=== PATIENT | male | born 1985 | race Caucasian/White ===

== ENCOUNTER 2020-02-20 17:44 | Inpatient (IN) | payer MEDICAID, OTHER ==
[~2020-02-20] VITALS: Ht 175.3 cm; Wt 88.3 kg
[2020-02-20 19:40] LABS: Eosinophils # (auto) 0 10 ^3/uL (0-0.8); Lymphocytes # (auto) 0.3 10 ^3/uL (0.4-5.4); Mean Corpuscular Hemoglobin 27.8 pg (28.0-32.0); Monocytes # (auto) 0.6 10 ^3/uL (0-1.3); Nucleated Red Blood Cells % 0.2 %; White Blood Cell 5.5 10^3/uL (4.4-10.8)
[2020-02-20 19:42] LABS: Basophils # (auto) 0.1 10 ^3/uL (0-0.2); Basophils % (auto) 1.2 % (0.0-2.0); Eosinophils % (auto) 0.4 % (0.0-7.0); Hematocrit 50.9 % (41.0-53.0); Hemoglobin 16.8 g/dL (13.5-17.5); Lymphocytes % (auto) 5.3 % (10.0-50.0); Mean Corpuscular Volume 84.2 fL (80.0-100.0); Neutrophils # (auto) 4.5 10 ^3/uL (1.6-8.6); Neutrophils % (auto) 82.1 % (37.0-80.0); Platelet Count (auto) 92 10^3/uL (140-450); Red Blood Cells 6.04 10^6/uL (4.5-5.90)
[2020-02-20 19:49] LABS: Red Cell Distribution Width 20.1 % (11.8-14.3)
[2020-02-20 20:16] LABS: Albumin 3.6 g/dL (3.4-5.0); Calcium 9.1 mg/dL (8.5-10.1); Potassium 3.8 mmol/L (3.5-5.1)
[2020-02-20 20:20] LABS: BUN/Creatinine Ratio 10.1; Bilirubin, Total 3.7 mg/dL (0.2-1.0); Total Protein 8.7 g/dL (6.4-8.2)
[2020-02-20 22:42] LABS: Urine Bacteria FEW /hpf (None Seen); Urine Blood 1+ /uL (Negative); Urine Hyaline Cast FEW /lpf (0 - 2); Urine Mucus FEW (None Seen); Urine Specific Gravity 1.021 (1.001-1.035); Urine WBC 3 /hpf (0 - 3)
[2020-02-20] MEDS ORDERED: TEMAZEPAM 15 MG CAP PO PRN (23:45)
[2020-02-20] MEDS ORDERED: SODIUM CHLORIDE 0.9% 1,000 ML IV ONE (23:45)
[2020-02-20] MEDS ORDERED: DOCUSATE SOD 100 MG CAP PO PRN (23:45)
[2020-02-20] MEDS ORDERED: ONDANSETRON HCL 4 MG/2 ML VIAL IV PRN (23:45)
[2020-02-20] MEDS ORDERED: DEXTROSE (50%) 50ML SYRG IV PRN (23:45)
[2020-02-20] MEDS ORDERED: ACETAMINOPHEN 325 MG TAB PO PRN (23:45)
[2020-02-20] MEDS ORDERED: LORazepam 0.5 MG TAB PO PRN (23:45)
[2020-02-20] MEDS ORDERED: LORazepam 2MG/ML-1ML VIAL ONE (23:57)
[2020-02-21] VITALS (8 sets, daily range): BP systolic 125–164; BP diastolic 72–117
[2020-02-21] MEDS ORDERED: levETIRAcetam 500 MG/5ML INJ IV ONE (00:07)
[2020-02-21 00:15] LABS: Alcohol, Urine < 3.0 mg/dL (0-10); Amphetamine Screen, Urine NEGATIVE (NEGATIVE); Barbiturate Scree,Urine NEGATIVE (NEGATIVE); Benzodiazephine Screen, Urine NEGATIVE (NEGATIVE); Cannabinoid Screen, Urine POSITIVE (NEGATIVE); Cocaine Screen, Urine NEGATIVE (NEGATIVE); Opiate Scree,Urine NEGATIVE (NEGATIVE); Phencyclidine Screen, Urine NEGATIVE (NEGATIVE)
[2020-02-21] MEDS ORDERED: LORazepam 2MG/ML-1ML VIAL IV ONE (00:30)
[2020-02-21] MEDS: ACCU-CHEK COMFORT CURVE STRIP VI SCH ×4 (01:04→11:48)
[2020-02-21] MEDS: InsuLIN REG 1unit/0.01ml Soln (100units/ml) SC SCH ×4 (01:09→11:49)
[2020-02-21] MEDS: cefTRIAXone 1GM/50ML D5W 50 ML IV SCH ×2 (01:41→23:54)
--- NOTE | 2020-02-21 01:45 | NUR ---
MS admit from ER MEENA CUELLO admitted to tele/MS after SBAR received. Patient alert and oriented to x2 person and place to MAYRA KRISHNA RN primary RN, room 996A, and unit policies regarding patient care and visiting hours. Patient came in for seizure, has left eye laceration. Patient weighed by bedscale and encouraged to call if they need something. All questions and concerns addressed, patient verbalized understanding. Note:
[2020-02-21] MEDS: HYDROcodone-ACET 5/325MG TAB PO PRN (02:18)
--- NOTE | 2020-02-21 04:18 | NUR ---
obtained order of hydralazine 25 mg po prn if sbp >150 from hospitalist
[2020-02-21] MEDS ORDERED: hydrALAZINE HCL 25 MG TAB PO PRN (04:30)
[2020-02-21 06:22] LABS: Basophils # (auto) 0 10 ^3/uL (0-0.2); Basophils % (auto) 0.4 % (0.0-2.0); Eosinophils # (auto) 0 10 ^3/uL (0-0.8); Eosinophils % (auto) 0.2 % (0.0-7.0); Hemoglobin 15.8 g/dL (13.5-17.5); Lymphocytes # (auto) 0.5 10 ^3/uL (0.4-5.4); Lymphocytes % (auto) 7.1 % (10.0-50.0); Mean Corpuscular Hgb Conc. 31.7 g/dL (32.0-36.0); Mean Corpuscular Volume 85.3 fL (80.0-100.0); Monocytes # (auto) 0.7 10 ^3/uL (0-1.3); Monocytes % (auto) 10.9 % (0.0-12.0); Neutrophils # (auto) 5.5 10 ^3/uL (1.6-8.6); Neutrophils % (auto) 81.4 % (37.0-80.0); Nucleated Red Blood Cells % 0.1 %; Platelet Count (auto) 92 10^3/uL (140-450); Red Blood Cells 5.86 10^6/uL (4.5-5.90); Red Cell Distribution Width 20.1 % (11.8-14.3); White Blood Cell 6.7 10^3/uL (4.4-10.8)
--- NOTE | 2020-02-21 06:30 | NUR ---
Rechecked BP 125/72, [place] 94, temp. 99.2, o2sat 93%.
[2020-02-21 06:40] LABS: Calcium 9.1 mg/dL (8.5-10.1); Potassium 3.4 mmol/L (3.5-5.1)
[2020-02-21 06:43] LABS: BUN/Creatinine Ratio 11.3
--- NOTE | 2020-02-21 07:05 | NUR ---
Closing shift report Patient alert and resposive, no SOB and no acute distress seen, no complains.
--- NOTE | 2020-02-21 07:30 | NUR ---
Opening Shift Note Assumed care of patient, awake and alert. No S/S of distress/SOB or pain. LAC IV noted to be out, catheter intact, no bleeding or trauma noted at site. Catheter properly disposed off. Will obtain new IV access. Seizure precautions in place. Instructed on POC and to call for assist PRN, will continue to monitor for changes Q1hr and PRN.
--- NOTE | 2020-02-21 07:40 | NUR ---
IV insertion IV access obtained, via clean sterile technique by inserting 22 gauge catheter at LFA after 1 attempt. IV secured properly. No trauma to site. Patient tolerated well.
--- NOTE | 2020-02-21 13:58 | NUR ---
IV Insertion 20G to pt's L FA inserted. One attempt made. Clean/sterile technique used. Pt self removed previous IV, catheter was removed fully intact. Site is asymptomatic.
[2020-02-21] MEDS ORDERED: LABETALOL HCL 5 MG/ML 4ML SYRINGE IV PRN (14:45)
[2020-02-21] MEDS ORDERED: LORazepam 2MG/ML-1ML VIAL IV PRN (14:45)
[2020-02-21] MEDS ORDERED: POTASSIUM EFFERVESENT TAB 25 MEQ PO ONE (15:00)
--- NOTE | 2020-02-21 17:00 | NUR ---
Send out COVID swab collected and walked to lab as per protocol.
--- NOTE | 2020-02-21 17:20 | NUR ---
Elevated BP Page out to neon molder hospitalist, d/t BP PRN requires pt to be Telemetry status. Will hold off on administering PRN until further orders obtained. Awaiting call back.
--- NOTE | 2020-02-21 17:29 | NUR ---
Received call from Dr. HENLEY. New orders received by telephone, read back and verified. Will carry out. Refer to order hx.
[2020-02-21] MEDS ORDERED: METOPROLOL SUCCINATE XL 50 MG TAB PO ONE (17:30)
--- NOTE | 2020-02-21 17:31 | NUR ---
Facesheet sent to tele monitor for tele box.
[2020-02-21] MEDS: LABETALOL HCL 5 MG/ML 4ML SYRINGE IV PRN ×2 (18:25→23:55)
--- NOTE | 2020-02-21 19:29 | NUR ---
Opening Shift Note Assumed care of patient, awake and alert. No S/S of distress/SOB or pain. Instructed on POC and to call for assist PRN, will continue to monitor for changes Q1hr and PRN.
[2020-02-21] MEDS: METOPROLOL SUCCINATE XL 50 MG TAB PO SCH (22:15)
--- NOTE | 2020-02-22 00:05 | NUR ---
Gave labetalol for 2 mins. BP is 158/95. will continue to monitor patient.
--- NOTE | 2020-02-22 00:55 | NUR ---
RECHECKED BP 149/101, [place] 86.
--- NOTE | 2020-02-22 03:27 | NUR ---
PATIENT ROUND PATIENT RESTING IN BED. WATCHING TV. DENIES ANY NEEDS RIGHT NOW.
[2020-02-22 05:00] VITALS: BP 157/106
[2020-02-22] MEDS: LABETALOL HCL 5 MG/ML 4ML SYRINGE IV PRN (05:29)
--- NOTE | 2020-02-22 06:29 | NUR ---
GAVE LABETALOL 10 MG IVP PRN FOR BP OF 157/106.
--- NOTE | 2020-02-22 06:29 | NUR ---
BP RECHECKED 150/90.
--- NOTE | 2020-02-22 07:00 | NUR ---
OPENING SHIFT NOTE RECEIVED REPORT ON THE PATIENT. PATIENT FOUND WALKING THE HALLS AND ENTERING OTHER PATIENT'S ROOMS BECAUSE HE COULD NOT REMEMBER WHAT ROOM WAS HIS. PATIENT WAS UNEASY ON HIS FEET, BUT PATIENT SAID "I'M FINE. YOU DON'T NEED TO BE CONCERNED". EDUCATED THE PATIENT ON STAYING IN BED TO AVOID FALLS SINCE HE IS HERE FOR SZ, BUT PATIENT WOULD NOT COMPLY. DISCUSSED THE PLAN OF CARE WITH THE PATIENT. BED IN LOWEST POSITION, BED ALARM ON, SIDE RAILS UP X2, AND THE CALL LIGHT IS WITHIN REACH.
[2020-02-22 07:35] LABS: Eosinophils # (auto) 0.1 10 ^3/uL (0-0.8); Hemoglobin 16.6 g/dL (13.5-17.5); Mean Corpuscular Volume 85.6 fL (80.0-100.0); White Blood Cell 6.3 10^3/uL (4.4-10.8)
[2020-02-22 07:37] LABS: Basophils # (auto) 0 10 ^3/uL (0-0.2); Basophils % (auto) 0.4 % (0.0-2.0); Eosinophils % (auto) 1.4 % (0.0-7.0); Hematocrit 52.4 % (41.0-53.0); Lymphocytes # (auto) 0.7 10 ^3/uL (0.4-5.4); Lymphocytes % (auto) 11.6 % (10.0-50.0); Mean Corpuscular Hemoglobin 27.1 pg (28.0-32.0); Mean Corpuscular Hgb Conc. 31.6 g/dL (32.0-36.0); Monocytes # (auto) 0.7 10 ^3/uL (0-1.3); Monocytes % (auto) 10.7 % (0.0-12.0); Neutrophils # (auto) 4.8 10 ^3/uL (1.6-8.6); Neutrophils % (auto) 75.9 % (37.0-80.0); Nucleated Red Blood Cells % 0.2 %; Platelet Count (auto) 96 10^3/uL (140-450); Red Blood Cells 6.12 10^6/uL (4.5-5.90)
[2020-02-22 07:49] LABS: Red Cell Distribution Width 20.2 % (11.8-14.3)
[2020-02-22 08:12] LABS: BUN/Creatinine Ratio 12.5; Calcium 9.5 mg/dL (8.5-10.1); Potassium 3.7 mmol/L (3.5-5.1)
[2020-02-22 08:51] VITALS: BP 149/98
[2020-02-22] MEDS: METOPROLOL SUCCINATE XL 50 MG TAB PO SCH ×2 (09:37→21:55)
--- NOTE | 2020-02-22 12:04 | NUR ---
ss consult Per ss consult patient needs PCP. Nadja Moses to see patient for PCP today Addendum: 02/22/20 at 1205 by Nadja RAMÍERZ Amended: Links added.
[2020-02-22 12:51] VITALS: BP 149/79
--- NOTE | 2020-02-22 16:48 | NUR ---
PATIENT REFUSING TO WEAR TELE MONITOR. EXPLAINED THAT I COULD NOT MONITOR THE PATIENT IF HE WAS NOT WEARING THE MONITOR. PATIENT STILL REFUSED.
[2020-02-22 16:49] VITALS: BP 133/80
--- NOTE | 2020-02-22 19:30 | NUR ---
Opening Shift Note Assumed care of patient, AA&OX4. No S/S of distress/SOB or pain. Safety and seizure precautions in place, bed in lowest locked position. Instructed on POC and to call for assist PRN, will continue to monitor for changes Q1hr and PRN. Signed: 02/22/20 at 2232 by MANJIT CAN SN <Co-Signature Required> Co-Signed: 02/22/20 at 2232 by CATHERINE CALDERON RN
[2020-02-22] MEDS: HYDROcodone-ACET 5/325MG TAB PO PRN (20:43)
--- NOTE | 2020-02-22 21:42 | NUR ---
Patient pulled out IV with catheter intact because he "felt it was coming out." New 22 gauge IV placed into a vein in the left AC after 1 attempt. IV secured with tegaderm. Patient tolerated well.
[2020-02-22] MEDS: cefTRIAXone 1GM/50ML D5W 50 ML IV SCH (23:09)
--- NOTE | 2020-02-22 23:28 | NUR ---
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 Made him aware that we will be unable to see any changes in his heart rate or rhythm. Patient acknowledged but is too annoyed with monitor to allow me to put it on him. Patient is upset about having to wear the monitor 24 hours a day. He stated he may allow me to put it back on later. [place] office notified.
[2020-02-22 23:39] VITALS: BP 143/97
--- NOTE | 2020-02-23 01:04 | NUR ---
Patient has left AMA. Patient came out of room and had pulled out his own IV and taken off his tele box. Patient stated: "I got to go. You people are making me anxious, giving me drugs and these chemicals." I tried to alleviate his fears with education but patient was already heading to the elevator. Patient told to go to emergency room if any symptoms occur again. Patient stated AMA form signed with second nurse as witness after patient refused to sign.
--- NOTE | 2020-02-23 01:18 | NUR ---
[employer] and security notified of patient's leaving AMA.
== END 2020-02-23 01:04 | disposition left against medical advice (07) | DRG 53 ==
LOC: ER 17:44 → EDBD 17:44 → OVERFLOW 17:45 → WEST WING 02-21 01:45 → TELE-WESTW 02-22 01:31
PROVIDERS: ADMIT Hospitalist; ATTEND Internal Medicine
DX: G40.909 Epilepsy, unspecified, not intractable, without status epilepticus (principal); E87.1 Hypo-osmolality and hyponatremia; N39.0 Urinary tract infection, site not specified; Z20.828 Contact with and (suspected) exposure to other viral communicable diseases; K72.90 Hepatic failure, unspecified without coma; I10 Essential (primary) hypertension; E66.9 Obesity, unspecified; E87.6 Hypokalemia; Z68.28 Body mass index [BMI] 28.0-28.9, adult
CPT/HCPCS: 36415; 70450; 70486; 80048; 80053; 80307; 80320; 81001; 82962; 85025; 87040; 87086; G0378; J0696; J1815; J3490; J7060

== ENCOUNTER 2020-02-29 12:32 | Inpatient (IN) | payer MEDICAID, OTHER ==
[~2020-02-29] VITALS: Ht 185.4 cm; Wt 101.1 kg
[2020-02-29] VITALS (33 sets, daily range): BP systolic 129–202; BP diastolic 68–92
[2020-02-29] MEDS ORDERED: LORazepam 2MG/ML-1ML VIAL IV ONE (13:15)
[2020-02-29] MEDS ORDERED: SODIUM CHLORIDE 0.9% 1,000 ML IV ONE ×2 (13:15)
[2020-02-29 13:26] LABS: Basophils # (auto) 0.1 10 ^3/uL (0-0.2); Basophils % (auto) 2.2 % (0.0-2.0); Eosinophils # (auto) 0.1 10 ^3/uL (0-0.8); Eosinophils % (auto) 1.2 % (0.0-7.0); Hematocrit 48.3 % (41.0-53.0); Hemoglobin 15.7 g/dL (13.5-17.5); Lymphocytes # (auto) 1.8 10 ^3/uL (0.4-5.4); Lymphocytes % (auto) 31.4 % (10.0-50.0); Mean Corpuscular Hemoglobin 28.2 pg (28.0-32.0); Mean Corpuscular Hgb Conc. 32.4 g/dL (32.0-36.0); Monocytes # (auto) 0.7 10 ^3/uL (0-1.3); Monocytes % (auto) 11.5 % (0.0-12.0); Neutrophils # (auto) 3.1 10 ^3/uL (1.6-8.6); Neutrophils % (auto) 53.7 % (37.0-80.0); Nucleated Red Blood Cells % 0.4 %; Platelet Count (auto) 234 10^3/uL (140-450); Red Blood Cells 5.56 10^6/uL (4.5-5.90); Red Cell Distribution Width 19.7 % (11.8-14.3); White Blood Cell 5.8 10^3/uL (4.4-10.8)
[2020-02-29 13:42] LABS: Urine WBC None Seen /hpf (0 - 3)
[2020-02-29] MEDS ORDERED: THIAMINE 100mg/ml INJ (200mg/2ml VIAL) IV ONE (13:45)
[2020-02-29 13:49] LABS: Urine Bacteria NONE SEEN /hpf (None Seen); Urine Blood TRACE /uL (Negative); Urine Specific Gravity 1.001 (1.001-1.035)
[2020-02-29 13:49] LABS: Albumin 3.3 g/dL (3.4-5.0); Calcium 8.6 mg/dL (8.5-10.1); Potassium 3.7 mmol/L (3.5-5.1)
[2020-02-29 14:04] LABS: Bilirubin, Total 1.7 mg/dL (0.2-1.0); Total Protein 8.6 g/dL (6.4-8.2)
[2020-02-29 14:06] LABS: Amphetamine Screen, Urine NEGATIVE (NEGATIVE); Barbiturate Scree,Urine NEGATIVE (NEGATIVE); Benzodiazephine Screen, Urine NEGATIVE (NEGATIVE); Cannabinoid Screen, Urine NEGATIVE (NEGATIVE); Cocaine Screen, Urine NEGATIVE (NEGATIVE); Phencyclidine Screen, Urine NEGATIVE (NEGATIVE)
[2020-02-29 14:15] LABS: Opiate Scree,Urine NEGATIVE (NEGATIVE)
[2020-02-29] MEDS ORDERED: diphenhdrAMINE HCL 50 MG/1 ML VL ONE (14:47)
[2020-02-29] MEDS ORDERED: methylPREDNISolone SOD SUCC 125 MG/2 ML VL ONE (14:47)
[2020-02-29] MEDS ORDERED: EPINEPHrine HCL 1 MG/1 ML AMP ONE (14:49)
--- NOTE | 2020-02-29 14:55 | NUR ---
INTUBATED PT PRESENTING WITH ALOC, INTUBATED BY DR. CASANOVA FOR AIRWAY PROTECTION. PT ORALLY INTUBATED WITH SIZE 8.0 ETT AT 22CM LIP, SECURED WITH HOLISTER. POSITIVE COLOR CHANGE ON COLORIMETRIC CO2 DETECTOR. BILATATERAL LUNG SOUNDS AUSCULTATED FOR CLEAR/DIM T/O. PLACED PT ON VENT ADQ 0206 PLUGGED INTO RED OUTLET, ON SETTINGS: AC, RR 14, VT 600, PEEP +5 , FIO2 100%. SUCTIONED FOR MODERATE THICK YELLOW SECRETIONS, SPUTUM SAMPLE OBTAINED AND SENT TO LAB. RN AT BEDSIDE, AWARE OF BLOOD PRESSURE. WILL CONT TO MONITOR.
[2020-02-29] MEDS ORDERED: MIDAZOLAM DRIP 50 mg/50mL 50 ML IV ONE (14:58)
[2020-02-29] MEDS ORDERED: EPINEPHrine HCL 1 MG/1 ML AMP IM ONE (15:00)
[2020-02-29] MEDS ORDERED: methylPREDNISolone SOD SUCC 125 MG/2 ML VL IV ONE ×2 (15:00)
[2020-02-29] MEDS ORDERED: PANTOPRAZOLE 40 MG/10 ML VIAL INJ IV ONE (15:00)
[2020-02-29] MEDS ORDERED: FLUMAZENIL 0.1 MG/ML INJ 10ML MDV IV ONE (15:00)
[2020-02-29] MEDS ORDERED: diphenhdrAMINE HCL 50 MG/1 ML VL IV ONE (15:00)
[2020-02-29] MEDS ORDERED: MIDAZOLAM DRIP 50 mg/50mL 50 ML IV SCH (15:15)
[2020-02-29] MEDS: SODIUM CHLORIDE 0.9% 1,000 ML IV SCH ×2 (16:05→21:21)
--- NOTE | 2020-02-29 16:11 | NUR ---
VENT CHANGES REPORTED ABG RESULTS TO DR. CASANOVA. VERBAL ORDER RECEIVED FOR VENT CHANGES: INCREASE RR TO 18. CHANGES MADE. NOTIFIED MITCHELL.
[2020-02-29] MEDS ORDERED: FOLIC ACID 1 MG, MULTIPLE VITAMIN 10 ML, MAGNESIUM SULF SDV 50% 8 MEQ, THIAMINE INJ 100... INJ ONE ×5 (16:15)
[2020-02-29] MEDS: MIDAZOLAM DRIP 50 mg/50mL 50 ML IV SCH ×3 (16:17→23:59)
[2020-02-29] MEDS: fentaNYL Drip 2500mCg/250mlNS 250 ML IV SCH (16:18)
--- NOTE | 2020-02-29 17:15 | NUR ---
PT RECEIVED FROM ER, 02 SATS 86-90%, ST ON MONITOR, OTHER VSS. OETT TO VENT A/C SETTINGS NOTED. LLL BREATH SOUNDS ABSENT, OTHERWISE BS CTA. PAGED RT, WAS INFORMED THAT THEY ARE IN REPORT AND THE PT IS OKAY AT 89%, INFORMED CN. CXR RESULTS FROM EARLIER TODAY RESULTED NGT ON ESOPHAGUS, RECOMMEND REPOSITIONING, ADVANCED NGT TO 55, NO RESIDUAL NOTED, NO AIR BOLUS AUSCULTATED. NGT REMOVED. I WAS LATER INFORMED BY BOGDAN RN IN ER (RN RETURNED TO BS), RN THAT PT MAY HAVE ASPIRATED DURING CENTRAL LINE PLACEMENT, AND THAT PT HAD O2 SAT OF 96% IN ER ONCE HOB ELEVATED POST CENTRAL LINE PLACEMENT. STAT CXR ORDERED. CONTINUED PRESSING 100% O2 ON VENTILATOR, BUT REMAINS 86-92% O2 SAT. WILL CONTINUE TO MONITOR CLOSELY.
--- NOTE | 2020-02-29 17:15 | NUR ---
RT Transport Note: Patient transported to ICU with RN. Patient transported on cardiac rn with alarms set and audible, ambu-bag/mask connected to O2 tank. Upon arrival, placed pt back on ventilator with previous settings. Transport completed without incident.
[2020-02-29] MEDS: ALBUTEROL SULF 2.5 MG/0.5ML(0.5%) NEB SOLN NEB PRN (17:57)
[2020-02-29] MEDS: IPRATROPIUM BROM 0.5 MG/2.5ML INH SOL NEB PRN (17:57)
--- NOTE | 2020-02-29 18:00 | NUR ---
RT AT BS, BS CXR IN PROGRESS. ST REMAINS, 02 SAT 90% ON A/C 18 TV 600 FIO2 70%, PEEP 5. WILL PAGE ATTENDING.
--- NOTE | 2020-02-29 18:11 | NUR ---
UPDATED ATTENDING MD ON PT STATUS, NEW ORDERS RECEIVED, RT UPDATED.
--- NOTE | 2020-02-29 19:58 | NUR ---
Opening Shift Note: Patient is intubated/sedated. Neuro: pupils 2 mm bilateral/sluggish; patient is able to make eye contact with voice/light pain and occasionally shake head yes and no, other times he is fatigued and sleepy; + cough/gag; sedation: Fentanyl @ 25 mcg, Versed @ 15 mg. Cardio: NSR 90 - ST 100s; SBPs 130s-140s; no edema noted; pulses all palpable. Resp: ET size 8.0/24 @ lip; Settings: AC rate 18, vT 600, FiO2 70%, PEEP 5. Previous orders for PEEP increase to 8 but patient is saturating 92-94%, RT aware, PEEP remains at 5; LLL diminished, anterior throughout otherwise clear; no ET secretions; oral secretions are thin and clear. GI: OGT inserted and placement confirmed with auscultation and aspiration of bile contents; CXR in am pending; hypoactive BS; last BM unknown. : godwin inserted 02/29/20 for strict I/O: light yefri with sediment. Skin: rashes/sores on face/chest/bilateral arms/back; small abrasion to left eye. IV: 18 g in left AC IID inserted on 02/29/20; Right IJ TLC inserted on 02/29/20 running sedation medications, NS @ 75 ml/hr, vitamin bag @ 125 ml/hr. Pulmonary and SS consultation pending. CXR/labs pending in AM; Liver US pending for elevated LFTs. Will continue to round/reposition/perform oral care.
--- NOTE | 2020-02-29 20:05 | NUR ---
MRSA swab sent to lab via [employer] system.
[2020-02-29] MEDS: metroNIDAZOLE 500MG/100ML 100 ML IV SCH (21:21)
--- NOTE | 2020-02-29 22:45 | NUR ---
Tech at bedside to perform liver US.
[2020-03-01] VITALS (102 sets, daily range): BP systolic 105–174; BP diastolic 59–93
[2020-03-01 03:50] LABS: Basophils # (auto) 0 10 ^3/uL (0-0.2); Basophils % (auto) 0.3 % (0.0-2.0); Eosinophils # (auto) 0 10 ^3/uL (0-0.8); Eosinophils % (auto) 0.2 % (0.0-7.0); Hematocrit 44.1 % (41.0-53.0); Hemoglobin 14.2 g/dL (13.5-17.5); Lymphocytes # (auto) 0.2 10 ^3/uL (0.4-5.4); Lymphocytes % (auto) 7.7 % (10.0-50.0); Mean Corpuscular Hemoglobin 28.2 pg (28.0-32.0); Mean Corpuscular Hgb Conc. 32.1 g/dL (32.0-36.0); Mean Corpuscular Volume 87.7 fL (80.0-100.0); Monocytes # (auto) 0 10 ^3/uL (0-1.3); Monocytes % (auto) 0.9 % (0.0-12.0); Neutrophils # (auto) 2.7 10 ^3/uL (1.6-8.6); Neutrophils % (auto) 90.9 % (37.0-80.0); Nucleated Red Blood Cells % 0.2 %; Platelet Count (auto) 211 10^3/uL (140-450); Red Blood Cells 5.03 10^6/uL (4.5-5.90); Red Cell Distribution Width 19.5 % (11.8-14.3)
[2020-03-01 04:10] LABS: Calcium 7.8 mg/dL (8.5-10.1); Potassium 3.8 mmol/L (3.5-5.1)
--- NOTE | 2020-03-01 04:13 | NUR ---
CHG bath not completed related to patient's agitation. All tubing, containers, and supplies changed per protocol.
[2020-03-01 04:16] LABS: Albumin 2.8 g/dL (3.4-5.0); BUN/Creatinine Ratio 8.9; Bilirubin, Total 1.4 mg/dL (0.2-1.0); Total Protein 7.8 g/dL (6.4-8.2)
[2020-03-01] MEDS: metroNIDAZOLE 500MG/100ML 100 ML IV SCH ×3 (04:44→22:30)
[2020-03-01] MEDS: MIDAZOLAM DRIP 50 mg/50mL 50 ML IV SCH ×3 (04:46→15:00)
--- NOTE | 2020-03-01 05:50 | NUR ---
Sister Kisha updated on patient status after password was provided.
--- NOTE | 2020-03-01 06:15 | NUR ---
Sister Kassy was updated on patient's status and plan of care after password was provided.
[2020-03-01] MEDS: cefTRIAXone 1GM/50ML D5W 50 ML IV SCH (08:48)
[2020-03-01] MEDS: PANTOPRAZOLE 40 MG/10 ML VIAL INJ IV SCH (09:58)
[2020-03-01] MEDS: AZITHROMYCIN 500MG/ 250ML 250 ML IV SCH (09:58)
[2020-03-01] MEDS: ENOXAPARIN SOD 40 MG/0.4 ML SYRINGE SC SCH (09:59)
--- NOTE | 2020-03-01 11:35 | NUR ---
Nutrition Consult/Assessment Notes please see attached link for complete assessment Est energy needs ABW 95 [id number] kcal (25-27 kcal/kg ABW), Est protein needs: 95-104 g (1.0-1.1g/kg ABW.) Will reassess prn Rec: EN support with osmolite@ 75 ml/hr per MD approval Addendum: 03/01/20 at [address] Amended: Links added.
[2020-03-01] MEDS: PROPOFOL 100 ML IV SCH ×3 (11:44→22:30)
[2020-03-01] MEDS: fentaNYL Drip 2500mCg/250mlNS 250 ML IV SCH (11:46)
[2020-03-01] MEDS: FOLIC ACID 1 MG, MULTIPLE VITAMIN 10 ML, MAGNESIUM SULF SDV 50% 8 MEQ, THIAMINE INJ 100... INJ SCH ×5 (14:00)
[2020-03-01] MEDS: ALBUTEROL SULF 2.5 MG/0.5ML(0.5%) NEB SOLN NEB PRN (16:24)
--- NOTE | 2020-03-01 19:20 | NUR ---
Opening Shift Note: Patient is intubated/sedated. Neuro: pupils 3 mm bilateral/brisk; patient is able to make eye contact with voice/light pain and occasionally shake head yes and no, other times he is fatigued and sleepy; + cough/gag; sedation: Fentanyl @ 25 mcg, Versed @ 5 mg; propofol @ 40. Cardio: NSR 90 - ST 100s; SBPs 130s-140s; no edema noted; pulses all palpable. Resp: ET size 8.0/24 @ lip; Settings: AC rate 18, vT 500, FiO2 60%, PEEP 8. Wheezes throughout anterior; no ET secretions; oral secretions are thin and clear. GI: OGT inserted and placement confirmed with auscultation and aspiration of brown bile contents; hypoactive BS; last BM unknown. : godwin inserted 02/29/20 for strict I/O: light yefri with sediment/slight hematuria. Skin: rashes/sores on face/chest/bilateral arms/back; small abrasion to left eye. IV: 18 g in left AC IID inserted on 02/29/20; Right IJ TLC inserted on 02/29/20 running sedation medications, NS @ 75 ml/hr, vitamin bag @ 125 ml/hr. SS consultation pending still. Labs pending in AM. Will continue to round/reposition/perform oral care.
[2020-03-01] MEDS: SODIUM CHLORIDE 0.9% 1,000 ML IV SCH (19:34)
[2020-03-02] VITALS (95 sets, daily range): BP systolic 121–178; BP diastolic 73–113
[2020-03-02] MEDS: PROPOFOL 100 ML IV SCH ×8 (00:56→22:16)
[2020-03-02] MEDS: MIDAZOLAM DRIP 50 mg/50mL 50 ML IV SCH ×4 (02:55→22:16)
--- NOTE | 2020-03-02 03:02 | NUR ---
Patient bathe/linen change Patient given complete CHG bath. Skin integrity assessed for any changes. Linens and gown changed. Patient repositioned for comfort.
[2020-03-02 03:54] LABS: Basophils # (auto) 0.1 10 ^3/uL (0-0.2); Basophils % (auto) 0.8 % (0.0-2.0); Eosinophils # (auto) 0 10 ^3/uL (0-0.8); Hematocrit 43.8 % (41.0-53.0); Hemoglobin 13.9 g/dL (13.5-17.5); Lymphocytes # (auto) 0.6 10 ^3/uL (0.4-5.4); Lymphocytes % (auto) 9.1 % (10.0-50.0); Mean Corpuscular Hemoglobin 27.9 pg (28.0-32.0); Mean Corpuscular Hgb Conc. 31.7 g/dL (32.0-36.0); Monocytes # (auto) 0.5 10 ^3/uL (0-1.3); Monocytes % (auto) 7.4 % (0.0-12.0); Neutrophils # (auto) 5.5 10 ^3/uL (1.6-8.6); Neutrophils % (auto) 82.7 % (37.0-80.0); Nucleated Red Blood Cells % 0.1 %; Platelet Count (auto) 208 10^3/uL (140-450); Red Blood Cells 4.97 10^6/uL (4.5-5.90); Red Cell Distribution Width 19.9 % (11.8-14.3); White Blood Cell 6.6 10^3/uL (4.4-10.8)
[2020-03-02 04:16] LABS: BUN/Creatinine Ratio 16.9; Calcium 8.2 mg/dL (8.5-10.1)
[2020-03-02] MEDS: metroNIDAZOLE 500MG/100ML 100 ML IV SCH ×3 (04:36→22:15)
[2020-03-02] MEDS: cefTRIAXone 1GM/50ML D5W 50 ML IV SCH (09:19)
[2020-03-02] MEDS: ENOXAPARIN SOD 40 MG/0.4 ML SYRINGE SC SCH (09:41)
[2020-03-02] MEDS: PANTOPRAZOLE 40 MG/10 ML VIAL INJ IV SCH (09:41)
[2020-03-02] MEDS: AZITHROMYCIN 500MG/ 250ML 250 ML IV SCH (10:06)
--- NOTE | 2020-03-02 10:25 | NUR ---
Resumed care at 0715, orders reviewed and ongoing assessments being done. Being treated for multiple problems and remains intubated and sedated. Upon arrival eyes open and able to move arms. Oriented to staff, place and situation. Able to nod yes or no to simple questions, ie; open mouth, can you hear me, ect... Diagnosed with seizures secondary to ETOH. No seizure activity reported and none so far. Had developed a skin rash this admission due to medication administration. Skin color normal with scaly texture on throughout body. Legs, arms, abdomen and back. No open areas. Contacted Dr. Castro at 1021 regarding increase in BP. No antihypertensive medications ordered. Reviewed medications and obtained order for Labetalol. Spoke with Juni Bullock Sr. over the phone and updated on plan of care.
[2020-03-02] MEDS ORDERED: LABETALOL HCL 5 MG/ML 4ML SYRINGE IV PRN ×2 (10:30)
[2020-03-02] MEDS: LABETALOL HCL 5 MG/ML 4ML SYRINGE IV PRN (10:52)
--- NOTE | 2020-03-02 11:00 | NUR ---
WOUND CARE NOTE: Wound care in to see patient for skin integrity monitoring due to low Hernán score of 13 and intubation status, putting patient to high risk for skin breakdown. Patient is 34 years old male with admitting diagnosis of T Breakthrough Seizures. Patient is resting in ICU bed in Rm. 101. Patient is intubated,sedated and mechanically ventilated. Patient appears to be in no pain using Yancey Kelsey Faces Pain Scale. Skin assessment done with the assistance of patient's nurse, MITCHELL Adler. No open wound noted other than scattered rashes/erythema to sacral, buttocks, abdomen and back which MITCHELL Adler reported skin irritation/reaction from Ativan. Linear scabbed abrasions also noted to patient's L lateral lower leg, area is clean and dry, left open to air. Patent is receiving BID/PRN cleaning and application of moisture Barrier cream to sacral, buttocks as preventative. Repositioned patient for comfort facing his Rt side, redistributed pressure points with pillows. Patient tolerated well. MITCHELL Adler at bedside. RECOMMENDATION: Nursing to continue with BID/PRN cleaning and application of moisture Barrier cream to sacral, buttocks as preventative, frequent turning and repositioning as condition permits, redistribute pressure points with pillows, elevate heels on pillows, continue monitoring by wound care while patient is intubated. Addendum: 03/02/20 at 1515 by Arlene Quiroz RN Amended: Links added.
--- NOTE | 2020-03-02 12:24 | NUR ---
assessment Patient is a 34 year old male who is in ICU on a vent. Per patients father Juni BARNES prior to admission patient lived home with him and family and was independent. Per Juni Barnes patient consumes too much alcohol. Juni BARNES informed me patient was drinking and had a seizure so he called 911. I informed Juni BARNES I would provide patient with resources after extubation and prior to discharge. I informed Juni Barnes I will continue to monitor and follow up as appropriate for any post discharge needs. Juni Barnes informed me patient has no insurance and gets 200.00 per week for unemployment. Brosnon Kc from [facility] informed me patients Medi-chan is pending. Juni Barnes verbalized understanding. Addendum: 03/02/20 at 1230 by Nadja RAMÍREZ Amended: Links added.
[2020-03-02] MEDS: SODIUM CHLORIDE 0.9% 1,000 ML IV SCH (12:27)
[2020-03-02] MEDS: FOLIC ACID 1 MG, MULTIPLE VITAMIN 10 ML, MAGNESIUM SULF SDV 50% 8 MEQ, THIAMINE INJ 100... INJ SCH ×5 (12:30)
--- NOTE | 2020-03-02 14:40 | NUR ---
Dr. Castro rounded at 1330. Discussed condition and plan of care. Obtained orders and verified. Will attempt CPAP trial in the am if appropriate.
--- NOTE | 2020-03-02 14:42 | NUR ---
Asiya wound care nurse was in to round earlier today, skin surveillance done.
[2020-03-02] MEDS: fentaNYL Drip 2500mCg/250mlNS 250 ML IV SCH ×2 (16:00→20:30)
--- NOTE | 2020-03-02 16:03 | NUR ---
RN for lunch coverage. In line suctioning yellow chowdary moderate inline secretions.
--- NOTE | 2020-03-02 17:31 | NUR ---
No remarkable changes, tolerating ventilator and titrated sedation as appropriate. Spoke with sister Kassy Schaeffer via phone at [phone].
--- NOTE | 2020-03-02 19:46 | NUR ---
ADMITTED 02/29/20 WHEN HIS FATHER FOUND HIM DOWN AFTER A SEIZURE. APPARENTLY REMAINED CONFUSED AFTER THE POSTICAL STATE. INTUBATED IN OUR ER. ATIVAN GIVEN IN ER FOR A SEIZURE, REACTED WITH A SKIN RASH, THEN WAS INTUBATED. BROUGHT TO ICU. ATIVAN IS ON THE ALLERGY LIST. ORALLY INTUBATED. PLAN FOR CPAP TRIAL TOMORROW. SEDATION: FENTANYL, VERSED, PROPOFOL. VITAMIN BANANA BAG UP AND RUNNING. OGT TO LIS. JIMÉNEZ IN PLACE DRAINING BOGDAN LIQUID WITH SEDIMENT. NSR WITHOUT ECTOPY.
--- NOTE | 2020-03-02 20:30 | NUR ---
ORAL CARE. SUCTIONED ETT FOR NO SECRETIONS. REPOSITIONED TO HIS RIGHT SIDE. OPENED EYES BRIEFLY. ABDOMEN IS VERY LARGE,ROUND AND SLIGHTLY FIRM. OGT TO LIS IS DRAINING A BILE GREEN LIQUID IN SMALL AMOUNTS. JIMÉNEZ IN PLACE DRAINING BOGDAN LIQUID WITH SEDIMENT. ALL EXTREMITIES ARE WARM. ALL PULSES ARE STRONG AND PALPABLE. HAS ONE PERIPHERAL IV IN THE LAC. MAIN ACCESS IS THE RIJ TLC. SCALY SKIN RASH. LEFT LATERAL LOWER LEG SCABBED ABRASIONS. BANANA BAG WITH MULTIPLE VITAMINS IS NEARING END.
--- NOTE | 2020-03-02 22:00 | NUR ---
ORAL CARE. REPOSITIONED TO BACK. NOTHING SUCTIONED FROM THE ETT. TOTAL OF 50CC OF BILE GREEN LIQUID FROM THE OGT. BANANA BAG FINISHED. REGULAR IV RETURNED TO 70CC/HR. NSR WITHOUT ECTOPY.
[2020-03-03] VITALS (101 sets, daily range): BP systolic 128–181; BP diastolic 69–101
--- NOTE | 2020-03-03 | NUR ---
PUPILS A LITTLE MORE RESPONSIVE, YET SMALL. ORAL CARE DONE. SMALL AMOUNT OF BLOOD ORALLY. NOTHING SUCTIONED FROM THE ETT. NGT COLOR HAS CHANGED TO GOLD. NO BOWEL SOUNDS. NO BM. URINE BOGDAN, CLEAR. AMOUNT OF URINE IS GOOD. NO EDEMA. LOW GRADE FEVER. NSR WITHOUT ECTOPY.
[2020-03-03] MEDS: PROPOFOL 100 ML IV SCH ×7 (01:26→18:28)
--- NOTE | 2020-03-03 03:00 | NUR ---
CHG BATH. PARTIAL LINEN CHANGE. HAS SEVERAL SMALL RED DOTS ALL OVER HIS SKIN THAT HAVE NOT INCREASED. SCDS ON.
--- NOTE | 2020-03-03 03:36 | NUR ---
AM LABS DRAWN
[2020-03-03 03:59] LABS: Basophils # (auto) 0 10 ^3/uL (0-0.2); Basophils % (auto) 0.4 % (0.0-2.0); Eosinophils # (auto) 0 10 ^3/uL (0-0.8); Eosinophils % (auto) 0.6 % (0.0-7.0); Hematocrit 43.4 % (41.0-53.0); Hemoglobin 13.8 g/dL (13.5-17.5); Lymphocytes # (auto) 1.1 10 ^3/uL (0.4-5.4); Lymphocytes % (auto) 18.2 % (10.0-50.0); Mean Corpuscular Hgb Conc. 31.8 g/dL (32.0-36.0); Monocytes # (auto) 0.3 10 ^3/uL (0-1.3); Monocytes % (auto) 5.5 % (0.0-12.0); Neutrophils # (auto) 4.6 10 ^3/uL (1.6-8.6); Neutrophils % (auto) 75.3 % (37.0-80.0); Nucleated Red Blood Cells % 0.1 %; Platelet Count (auto) 210 10^3/uL (140-450); Red Blood Cells 4.93 10^6/uL (4.5-5.90); White Blood Cell 6.1 10^3/uL (4.4-10.8)
[2020-03-03] MEDS: MIDAZOLAM DRIP 50 mg/50mL 50 ML IV SCH ×2 (04:01→19:30)
[2020-03-03 04:19] LABS: BUN/Creatinine Ratio 15.5; Calcium 8.4 mg/dL (8.5-10.1); Potassium 3.9 mmol/L (3.5-5.1)
[2020-03-03] MEDS: metroNIDAZOLE 500MG/100ML 100 ML IV SCH ×3 (06:00→22:16)
--- NOTE | 2020-03-03 06:00 | NUR ---
PROPOFOL LIFTED, THE PATIENT WAS MOVING ALL OVER THE BED. PROPOFOL REINSTATED.
[2020-03-03] MEDS: ALBUTEROL SULF 2.5 MG/0.5ML(0.5%) NEB SOLN NEB PRN (06:49)
[2020-03-03] MEDS: IPRATROPIUM BROM 0.5 MG/2.5ML INH SOL NEB PRN (06:49)
[2020-03-03] MEDS: SODIUM CHLORIDE 0.9% 1,000 ML IV SCH ×3 (08:00→22:19)
--- NOTE | 2020-03-03 09:00 | NUR ---
DECREASING SEDATIVES FOR IMPENDING CPAP TRIAL-SEE IV SPREAD SHEET. Addendum: 03/03/20 at 1935 by Keiry Ruiz RN Amended: Links added.
--- NOTE | 2020-03-03 11:10 | NUR ---
DR SOLORIO VISITS AND EXAMINES PATIENT - ORDERS RECEIVED.
[2020-03-03] MEDS: PANTOPRAZOLE 40 MG/10 ML VIAL INJ IV SCH (11:38)
[2020-03-03] MEDS: AZITHROMYCIN 500MG/ 250ML 250 ML IV SCH (11:38)
[2020-03-03] MEDS: cefTRIAXone 1GM/50ML D5W 50 ML IV SCH (11:39)
[2020-03-03] MEDS: ENOXAPARIN SOD 40 MG/0.4 ML SYRINGE SC SCH (11:39)
[2020-03-03] MEDS: FOLIC ACID 1 MG, MULTIPLE VITAMIN 10 ML, MAGNESIUM SULF SDV 50% 8 MEQ, THIAMINE INJ 100... INJ SCH ×5 (12:20)
--- NOTE | 2020-03-03 12:39 | NUR ---
PATIENT'S SISTER TOBIN PHONES - UPDATED ON PATIENT CONDITION, REQUESTS TO SPEAK WITH MD - DR SOLORIO NOTIFIED.
--- NOTE | 2020-03-03 14:25 | NUR ---
PER. MEDRANO. NO CPAP TRIAL TODAY. PT. SEDATED, WILL CONTINUE TO MONITOR RESP. STATUS AND 02 SATS.
[2020-03-03] MEDS ORDERED: LABETALOL HCL 5 MG/ML 4ML SYRINGE IV PRN (14:45)
--- NOTE | 2020-03-03 14:51 | NUR ---
Nutrition Followup Note Wt 108.9kg Pt is sedated with propofol running at 32.49 ml/hr providing 858 kcals from lipids. Pt with possible CPAP trial per Md note. Pt with no diet order. Consider Osmolite 1.2 at a goal rate of 75 ml/hr per MD approval Est energy needs ABW 95 [id number] kcal (25-27 kcal/kg ABW), Est protein needs: 95-104 g (1.0-1.1g/kg ABW.) Will reassess prn Labs: Creat 0.58L, Alb 2.8L, Ca 8.4L BM: Pt with no BM noted, gastric drainage 250 ml 03/03 per RN note Skin: BS 15 mod risk, full details in livestock caretaker note PES: Altered nutrition related lab values r.t current chronic medical condition aeb hyperbil, mod hypoalb Decreased nutrient needs r/t adiposity aeb pt`s high BMI of 31.5 kgm2 Impaired swallowing r.t current medical condition aeb pt`s intubated sedated with order if NPO Comments 1) advance diet as medically feasible 2) consider EN support with Osmolite @ 75 ml/hr per MD approval 3) refer to OPD on DC 4) continue current plan of care Expected Outcomes/Goals: pt will have improved labs F/u high 2-3 days
[2020-03-03] MEDS ORDERED: AMIODARONE HCL 200 MG TAB PO SCH (16:00)
[2020-03-03] MEDS: fentaNYL Drip 2500mCg/250mlNS 250 ML IV SCH (19:30)
--- NOTE | 2020-03-03 20:00 | NUR ---
ADMITTED 02/29/20 WHEN HIS FATHER FOUND HIM DOWN AFTER A SEIZURE. APPARENTLY REMAINED CONFUSED AFTER THE POSTICAL STATE. INTUBATED IN OUR ER. ATIVAN GIVEN IN ER FOR A SEIZURE, REACTED WITH A SKIN RASH, THEN WAS INTUBATED. BROUGHT TO ICU. ATIVAN IS ON THE ALLERGY LIST. ORALLY INTUBATED. PLAN FOR CPAP TRIAL TOMORROW. SEDATION: FENTANYL, VERSED, PROPOFOL. CPAP TRIALS ON HOLD FOR NOW. VITAMIN BANANA BAG UP AND RUNNING. NSR WITHOUT ECTOPY. OGT TO LIS DRAINING GOLD LIQUID. CENTRAL LINE DRESSING LOOSE AT CORNER. HICKS UNDER IT. AREA SHAVED AND NEW CENTRAL LINE DRESSING AND BIOPATCH PLACED. HAIR UNDER EKG LEADS LOOSE DUE TO HAIR. AREA SHAVED AND CLEANED. NEW EKG PADS. ORAL CARD. ETT SUCTIONED. ABDOMEN ROUND, LARGE AND SLIGHTLY FIRM. NO BM YET. JIMÉNEZ IN PLACE DRAINING LIGHT BOGDAN LIQUID WITH RARE SEDIMENT. NO KRISTY SKIN ISSUES. SCDS ON. ALL PULSES STRONG AND PALPABLE. NO PERIPHERAL EDEMA. BILATERAL MITTENS ON. WAKES UP OCCASIONALLY MOVING ALL EXTREMITIES. SEDATION IS HOLDING HIM IN A QUIET STATE. NO SEIZURE ACTIVITY SINCE ER. ETT TO VENTILATOR. O2 SAT 94%. NO VENTILATOR CHANGES. NEW ORDER FOR EEG. NEW CONSULT TODAY: DR GAUTAM. HAVE NOT SPOKE TO FAMILY SO FAR. PATIENTS FACE IS RED. SCALY SKIN UNDER HICKS. SMALL DOTS SCATTERED IN A NON UNIFORM FASHION ACROSS TORSO, ARMS, LEGS. SBP STABLE NOT REQUIRING PRN LABETOLOL.
--- NOTE | 2020-03-03 22:00 | NUR ---
REPOSITIONED TO BACK. ORAL CARE DONE. SUCTIONED THE ETT. NORMAL TEMPERATURE. MOVES ALL EXTREMITIES WHEN STIMULATED. CONTINUES ON SEDATION: VERSED, FENTANYL AND DIPRIVAN. NO INCREASE IN RASH.
--- NOTE | 2020-03-03 23:00 | NUR ---
CENTRAL LINE DRESSING CHANGE.
[2020-03-04] VITALS (104 sets, daily range): BP systolic 98–171; BP diastolic 50–158
--- NOTE | 2020-03-04 | NUR ---
SANDI AT 4 AND SLUGGISH. ORAL CARE. SUCTIONED AND LAVAGED ETT FOR A SMALL AMOUNT OF WHITE SECRETIONS. LUNGS CLEAR. PIP AROUND 32-34. ABDOMEN REMAINS LARGE, ROUND AND SLIGHTLY FIRM. NO BM. JIMÉNEZ DRAINING A DARK BOGDAN LIQUID WITH SLUDGE.
[2020-03-04] MEDS: LABETALOL HCL 5 MG/ML 4ML SYRINGE IV PRN (02:59)
[2020-03-04] MEDS: MIDAZOLAM DRIP 50 mg/50mL 50 ML IV SCH ×3 (03:00→22:00)
--- NOTE | 2020-03-04 03:00 | NUR ---
LABETOLOL FOR SBP 171
--- NOTE | 2020-03-04 03:19 | NUR ---
AM LABS DRAWN
[2020-03-04] MEDS: PROPOFOL 100 ML IV SCH ×8 (03:39→22:48)
[2020-03-04 04:02] LABS: Basophils # (auto) 0 10 ^3/uL (0-0.2); Basophils % (auto) 0.5 % (0.0-2.0); Eosinophils # (auto) 0.1 10 ^3/uL (0-0.8); Eosinophils % (auto) 1.8 % (0.0-7.0); Hematocrit 43.6 % (41.0-53.0); Hemoglobin 13.9 g/dL (13.5-17.5); Lymphocytes # (auto) 0.8 10 ^3/uL (0.4-5.4); Lymphocytes % (auto) 13.2 % (10.0-50.0); Mean Corpuscular Hemoglobin 27.9 pg (28.0-32.0); Mean Corpuscular Hgb Conc. 31.9 g/dL (32.0-36.0); Mean Corpuscular Volume 87.5 fL (80.0-100.0); Monocytes # (auto) 0.2 10 ^3/uL (0-1.3); Monocytes % (auto) 3.5 % (0.0-12.0); Nucleated Red Blood Cells % 0.1 %; Platelet Count (auto) 195 10^3/uL (140-450); Red Blood Cells 4.98 10^6/uL (4.5-5.90); White Blood Cell 6.2 10^3/uL (4.4-10.8)
[2020-03-04 04:15] LABS: Red Cell Distribution Width 20.2 % (11.8-14.3)
[2020-03-04 04:24] LABS: BUN/Creatinine Ratio 13.5; Calcium 8.5 mg/dL (8.5-10.1); Potassium 3.6 mmol/L (3.5-5.1)
--- NOTE | 2020-03-04 05:00 | NUR ---
CHG BATH AND PARTIAL LINEN CHANGE
[2020-03-04] MEDS: metroNIDAZOLE 500MG/100ML 100 ML IV SCH ×3 (06:14→22:13)
--- NOTE | 2020-03-04 07:20 | NUR ---
Assumed care of pt., report received per MITCHELL Hanna. No distress noted, pt. attached to ventilator and monitor and reading sinus rhythm /s ectopy and tolerating vent. Will cont.to monitor for any changes, assessment ongoing.
[2020-03-04] MEDS: ENOXAPARIN SOD 40 MG/0.4 ML SYRINGE SC SCH (10:31)
[2020-03-04] MEDS: cefTRIAXone 1GM/50ML D5W 50 ML IV SCH (10:31)
[2020-03-04] MEDS: AZITHROMYCIN 500MG/ 250ML 250 ML IV SCH (10:31)
[2020-03-04] MEDS: PANTOPRAZOLE 40 MG/10 ML VIAL INJ IV SCH (10:31)
--- NOTE | 2020-03-04 12:15 | NUR ---
pt. noted to have become anxious/agitated and unable to reason with patient to follow simple commands upon sedation vacation initiation, pt. tolerated CPAP for 5 min and required returning to sedation due to the reasons above and noted elevated B/P and increasing tachycardia, will cont.to monitor for any further changes, assessment ongoing.
[2020-03-04] MEDS: FOLIC ACID 1 MG, MULTIPLE VITAMIN 10 ML, MAGNESIUM SULF SDV 50% 8 MEQ, THIAMINE INJ 100... INJ SCH ×5 (12:29)
[2020-03-04] MEDS: SODIUM CHLORIDE 0.9% 1,000 ML IV SCH ×2 (13:00→22:00)
--- NOTE | 2020-03-04 16:08 | NUR ---
EEG-ELECTROENCEPHALOGRAM COMPLETED @ 10:30.
--- NOTE | 2020-03-04 19:25 | NUR ---
No distress noted, pt. report given to MITCHELL Hanna. Care of pt. assumed per NOC RN, day shift RN relinquished care and signed off.
[2020-03-04] MEDS: fentaNYL Drip 2500mCg/250mlNS 250 ML IV SCH (19:50)
--- NOTE | 2020-03-04 20:00 | NUR ---
SCALY NOSE AND SKIN UNDER HICKS. TRIED REMOVING SOME OF IT. RASH DOTS LOOK LIKE PEMPHIGUS. THEY ARE STILL ALL OVER THE TORSO, BACK, ARMS AND LEGS. THEY HAVE NOT WORSENED OR GOTTEN BETTER. LUNGS CLEAR. RESP TX BEING GIVEN. ORAL CARE: LARGE AMOUNT OF CLOUDY WHITE. OGT TO LIS IS DRAINING GOLD LIQUID BUT LESS SO THAN YESTERDAY. RARE BOWEL SOUND. NO BM YET. JIMÉNEZ: DARK BOGDAN LIQUID IN GOOD AMOUNTS. NO PERIPHERAL EDEMA. ABDOMEN IS ROUND, LARGE AND LIGHTLY FIRM. ALL PULSES PALPABLE. BILATERAL MITTENS ON.
--- NOTE | 2020-03-04 20:28 | NUR ---
ADMITTED 02/29/20 WHEN HIS FATHER FOUND HIM DOWN AFTER A SEIZURE. APPARENTLY REMAINED CONFUSED AFTER THE POSTICAL STATE. INTUBATED IN OUR ER. ATIVAN GIVEN IN ER FOR A SEIZURE, REACTED WITH A SKIN RASH, THEN WAS INTUBATED. BROUGHT TO ICU. ATIVAN IS ON THE ALLERGY LIST. ORALLY INTUBATED. PLAN FOR CPAP TRIAL TOMORROW. SEDATION: FENTANYL, VERSED, PROPOFOL. VITAMIN BANANA BAG UP AND RUNNING. NSR WITHOUT ECTOPY. OGT TO LIS DRAINING GOLD LIQUID. ORAL CARe. ETT SUCTIONED. ABDOMEN ROUND, LARGE AND SLIGHTLY FIRM. NO BM YET. JIMÉNEZ IN PLACE DRAINING LIGHT BOGDAN LIQUID WITH RARE SEDIMENT. NO KRISTY SKIN ISSUES. SCDS ON. ALL PULSES STRONG AND PALPABLE. NO PERIPHERAL EDEMA. BILATERAL MITTENS ON. SEDATION IS HOLDING HIM IN A QUIET STATE. NO SEIZURE ACTIVITY SINCE ER. ETT TO VENTILATOR. O2 SAT 91%. RT PREVIOUSLY PLACED HIM ON 35%. RT IN ROOM NOW. NEW ORDER FOR EEG. NEW CONSULT YESTERDAY: DR GAUTAM. EEG RESULTS REPORTED TO DR GAUTAM. HAVE NOT SPOKE TO FAMILY SO FAR. PATIENTS FACE IS RED. SCALY SKIN UNDER HICKS. SMALL DOTS SCATTERED IN A NON UNIFORM FASHION ACROSS TORSO, ARMS, LEGS. SBP STABLE NOT REQUIRING PRN LABETOLOL.
[2020-03-04] MEDS: ALBUTEROL SULF 2.5 MG/0.5ML(0.5%) NEB SOLN NEB PRN (20:30)
[2020-03-04] MEDS: IPRATROPIUM BROM 0.5 MG/2.5ML INH SOL NEB PRN (20:30)
--- NOTE | 2020-03-04 21:00 | NUR ---
FIO2 INCREASED TO 40%. O2 SAT ONLY 92%. AC 18, RR 18, PIP 26.4. YESTERDAY IT WAS 31
--- NOTE | 2020-03-04 22:00 | NUR ---
ORAL CARE. REPOSITIONED TO HIS LEFT SIDE. NSR WITHOUT ECTOPY. NO VENTILATOR CHANGES. SUCTIONED THE ETT FOR WATERY SECRETIONS. JIMÉNEZ: BOGDAN LIQUID IN GOOD AMOUNTS. IV SITE SHOWS NO REDNESS OR SWELLING.
[2020-03-05] VITALS (84 sets, daily range): BP systolic 110–188; BP diastolic 60–125
--- NOTE | 2020-03-05 | NUR ---
NSR WITHOUT ECTOPY. SANDI. ORAL CARE DONE. WATERY SECRETIONS FROM THE ETT. OGT SECRETIONS GOLD. NO BM YET. URINE IS DARK BOGDAN IN GOOD AMOUNTS.
[2020-03-05] MEDS: PROPOFOL 100 ML IV SCH ×2 (01:48→04:38)
--- NOTE | 2020-03-05 02:00 | NUR ---
VSS. NSR WITHOUT ECTOPY. REPOSITIONED TO RIGHT SIDE. ORAL CARE. JIMÉNEZ: DARK BOGDAN LIQUID URINE OUTPUT.
--- NOTE | 2020-03-05 04:30 | NUR ---
REPOSITIONED TO BACK. VSS. NSR WITHOUT ECTOPY. LUNGS CLEAR.
[2020-03-05] MEDS: MIDAZOLAM DRIP 50 mg/50mL 50 ML IV SCH (04:39)
--- NOTE | 2020-03-05 05:04 | NUR ---
[facility] BATH
[2020-03-05 05:20] LABS: Basophils # (auto) 0 10 ^3/uL (0-0.2); Basophils % (auto) 0.5 % (0.0-2.0); Eosinophils # (auto) 0.2 10 ^3/uL (0-0.8); Eosinophils % (auto) 2.2 % (0.0-7.0); Hematocrit 42.7 % (41.0-53.0); Hemoglobin 13.5 g/dL (13.5-17.5); Lymphocytes # (auto) 0.6 10 ^3/uL (0.4-5.4); Lymphocytes % (auto) 8.2 % (10.0-50.0); Mean Corpuscular Hemoglobin 27.7 pg (28.0-32.0); Mean Corpuscular Hgb Conc. 31.6 g/dL (32.0-36.0); Mean Corpuscular Volume 87.6 fL (80.0-100.0); Monocytes # (auto) 0.3 10 ^3/uL (0-1.3); Monocytes % (auto) 4.2 % (0.0-12.0); Neutrophils # (auto) 6.2 10 ^3/uL (1.6-8.6); Neutrophils % (auto) 84.9 % (37.0-80.0); Platelet Count (auto) 171 10^3/uL (140-450); Red Blood Cells 4.87 10^6/uL (4.5-5.90); White Blood Cell 7.3 10^3/uL (4.4-10.8)
[2020-03-05] MEDS: metroNIDAZOLE 500MG/100ML 100 ML IV SCH ×3 (05:33→22:17)
[2020-03-05 05:42] LABS: Calcium 8.2 mg/dL (8.5-10.1); Potassium 3.6 mmol/L (3.5-5.1)
[2020-03-05] MEDS: cefTRIAXone 1GM/50ML D5W 50 ML IV SCH (09:19)
[2020-03-05] MEDS: PANTOPRAZOLE 40 MG/10 ML VIAL INJ IV SCH (09:57)
[2020-03-05] MEDS: AZITHROMYCIN 500MG/ 250ML 250 ML IV SCH (09:58)
[2020-03-05] MEDS: ENOXAPARIN SOD 40 MG/0.4 ML SYRINGE SC SCH (09:58)
--- NOTE | 2020-03-05 11:03 | NUR ---
Nutrition Followup Note Wt 108.8 kg Pt is on a sedation vacation d/t scheduled extubation per RN. Pt with no diet order, pending successful extubation. Est energy needs ABW 95 [id number] kcal (25-27 kcal/kg ABW), Est protein needs: 95-104 g (1.0-1.1g/kg ABW.) Will reassess prn Labs: Alb 2.8 L, Ca 8.2 L BM: Pt with incontinence per RN note Skin: BS 16 mod risk, full details in campground caretaker note PES: Altered nutrition related lab values r.t current chronic medical condition aeb hyperbil, mod hypoalb Decreased nutrient needs r/t adiposity aeb pt`s high BMI of 31.5 kgm2 Impaired swallowing r.t current medical condition aeb pt`s intubated sedated with order if NPO Comments 1) advance diet as medically feasible 2) consider EN support with Osmolite @ 75 ml/hr per MD approval 3) refer to OPD on DC 4) continue current plan of care
--- NOTE | 2020-03-05 11:20 | NUR ---
ABG RESULTS REPORTED TO DR. SOLORIO. T.O. RECEIVED TO EXTUBATE PT.
--- NOTE | 2020-03-05 11:30 | NUR ---
PT. EXTUBATED AND PLACED ON 40% COOL AEROSOL, SP02 88-90%, RR 28, MW=346. BS. ARE CLEAR BILATERALLY, PT. COUGHING AND CLEARING SECRETIONS. PT. COUGHING A LOT, SEEMS TO HAVE SOME IRRITATION IN HIS THROAT. NO RESP. DISTRESS NOTED, VITALS STABLE, WILL CONTINUE TO MONITOR RESP. STATUS AND 02 SATS.
--- NOTE | 2020-03-05 11:35 | NUR ---
SPO2 NOTE TO BE AT 87%, PT. GIVEN MN. TX. WITH NO ADVERSE EFFECTS, COUGH SETTLING DOWN, INCREASED COOL AERSOL TO 50%.
--- NOTE | 2020-03-05 12:00 | NUR ---
PT. PLACED ON BIPAP 05/09, BR 12, FI02 50%. ALARMS ARE SET AND FUNCTIONAL, BVM AT THE BEDSIDE CONNECTED TO 02 SOURCE. PT. IS AWAKE AND ALERT FOLLOWING COMMANDS. RR=23,ED=898, SP02 92%, FH=697,LEAK=32. CONTINUE TO MONITOR RESP. STATUS AND 02 SATS. Addendum: 03/05/20 at 1239 by Maddie Murillo RT Amended: Links added.
--- NOTE | 2020-03-05 12:05 | NUR ---
pt. noted 100.5 MD Dmitri notified and new orders were received, will implement and will cont.to monitor for any change, call harrison in reach, assessment ongoing.
[2020-03-05] MEDS: FOLIC ACID 1 MG, MULTIPLE VITAMIN 10 ML, MAGNESIUM SULF SDV 50% 8 MEQ, THIAMINE INJ 100... INJ SCH ×5 (13:38)
--- NOTE | 2020-03-05 14:10 | NUR ---
pt. pulled off bipap, due to vomiting gastic contents. Placed pt. back on cool aerosol at 50%. No resp. distress noted at this time, sp02 91%,rr 22,hr 108. Continue to monitor resp. status and 02 sats.
[2020-03-05] MEDS: SODIUM CHLORIDE 0.9% 1,000 ML IV SCH ×2 (15:46→23:00)
[2020-03-05 16:03] LABS: Urine Bacteria FEW /hpf (None Seen); Urine Blood 2+ /uL (Negative); Urine Specific Gravity 1.018 (1.001-1.035); Urine WBC 3 /hpf (0 - 3)
[2020-03-05] MEDS: ONDANSETRON HCL 4 MG/2 ML VIAL IV PRN ×2 (16:50→20:33)
--- NOTE | 2020-03-05 19:15 | NUR ---
No distress noted, pt. report given to MITCHELL Hanna. Patient care assumed per NOC shift RN, day shift RN relinquished care and signed off.
--- NOTE | 2020-03-05 19:29 | NUR ---
ADMITTED 02/29/20 WHEN HIS FATHER FOUND HIM DOWN AFTER A SEIZURE. APPARENTLY REMAINED CONFUSED AFTER THE POSTICTAL STATE. INTUBATED IN OUR ER. ATIVAN GIVEN IN ER FOR A SEIZURE, REACTED WITH A SKIN RASH, THEN WAS INTUBATED. BROUGHT TO ICU. ATIVAN IS ON THE ALLERGY LIST. EXTUBATED AT 1130. ON COOL MIST AND BIPAP. NOW ON OXYMIZER 8L. O2 SAT 95%. AWAKE. LYING IN BED. COOPERATING. ALERT. FOLLOWS COMMANDS. PEARL. JONES. RIJ TLC IS MISSING A STITCH. NEW DRESSING IS SECURE, CLEAN AND DRY. NPO. VOMITED TWICE ON DAYSHIFT. ZOFRAN GIVEN ONCE. NO EMESIS SINCE. JIMÉNEZ IN PLACE DRAINING BOGDAN LIQUID IN GOOD AMOUNTS. PATEL CULTURE ORDER. WAITING FOR INDUCEMENT OF SPUTUM BY RT. SCDS ON. CONTINUES TO HAVE RASH OVER ENTIRE BODY. THE RASH PRESENTS PEMPHIGUS, SOME WITH YELLOW HEADS, OTHERS ARE JUST RED. SBP NORMAL. LABETOLOL PRN .
--- NOTE | 2020-03-05 20:10 | NUR ---
SAT AND TALKED TO HIM FOR AWHILE. HE INQUIRED TO WHY HE GOT HERE. I EXPLAINED WHAT HAPPENED AT THE HOUSE THAT LED HIM HERE. THEN I EXPLAINED WHAT HAS HAPPENED SINCE HE CAME HERE. HE STATED THAT HE HAS NEVER BEEN TO REHAB FOR HIS DRINKING, YET HE FEELS HE CAN QUIT. HE STATED: " LOOK WHAT HAPPENED TO ME, I HAVE TO QUIT". HE IS UNAWARE RIGHT NOW IF HIS SEIZURES STARTED BEFORE HIS DRINKING STARTED. HE HAS A WHISPERY VOICE. ORIENTED. CALM. COOPERATIVE. MOVES HIMSELF IN BED. EXPLAINED WHERE HE IS, THE PLAN FOR TONIGHT AND TO BE CAREFUL WITH HIS LINES.
--- NOTE | 2020-03-05 22:00 | NUR ---
PATIENT IS REQUESTING A FAN AND A BLANKET. O2 SAT IS 93. REPOSITIONS SELF. FACE IS RED. TEMP 99.0
[2020-03-06] VITALS (52 sets, daily range): BP systolic 112–208; BP diastolic 56–124
--- NOTE | 2020-03-06 | NUR ---
BP 162/102. LABETOLOL GIVEN DENIES NAUSEA OR PAIN. VERY COARSE COUGH. SO FAR NONPRODUCTIVE. LUNGS CLEAR. NO FEVER. WANTS THE FAN ON. TOOK HIS GOWN PART WAY OFF. NO CHANGE IN RASH. IV SITE SHOWS NO REDNESS OR SWELLING. HAS ROLLED OVER AND IS TRYING TO SLEEP. HAVE GIVEN HIM 15 ML OF WATER TWICE. NO COUGHING. SORE THROAT.
[2020-03-06] MEDS: LABETALOL HCL 5 MG/ML 4ML SYRINGE IV PRN ×5 (00:25→23:14)
--- NOTE | 2020-03-06 02:00 | NUR ---
SLEEPS ON AND OFF. VSS. NSR WITHOUT ECTOPY. IV PATENT.
--- NOTE | 2020-03-06 04:00 | NUR ---
CHG BATH GIVEN. LARGE AMOUNT OF FLAKY SKIN WASHED OFF FACE AND HEAD. HE PARTICIPATED IN THE BATH. HE OCCASIONALLY PICKS UP A WIRE AND ASKS, "DO I NEED THIS?" STATES THAT HE FEELS GOOD AND WANTS TO GO HOME. SBP HAS BEEN HIGH FOR 4 HOURS. LABETOLOL IS NOT HOLDING HIM. DUE AGAIN. SCDS REMAIN ON. JIMÉNEZ DRAINING A LARGE AMOUNT CLEAR BOGDAN LIQUID TO DOWN DRAIN BAG. NSR WITHOUT ECTOPY.
[2020-03-06 04:57] LABS: Basophils # (auto) 0 10 ^3/uL (0-0.2); Basophils % (auto) 0.2 % (0.0-2.0); Eosinophils # (auto) 0.1 10 ^3/uL (0-0.8); Eosinophils % (auto) 1.5 % (0.0-7.0); Hematocrit 44.2 % (41.0-53.0); Lymphocytes # (auto) 0.4 10 ^3/uL (0.4-5.4); Lymphocytes % (auto) 5.8 % (10.0-50.0); Mean Corpuscular Hemoglobin 27.7 pg (28.0-32.0); Mean Corpuscular Hgb Conc. 31.7 g/dL (32.0-36.0); Mean Corpuscular Volume 87.3 fL (80.0-100.0); Monocytes # (auto) 0.4 10 ^3/uL (0-1.3); Monocytes % (auto) 4.8 % (0.0-12.0); Neutrophils # (auto) 6.6 10 ^3/uL (1.6-8.6); Neutrophils % (auto) 87.7 % (37.0-80.0); Nucleated Red Blood Cells % 0.1 %; Platelet Count (auto) 190 10^3/uL (140-450); Red Blood Cells 5.06 10^6/uL (4.5-5.90); Red Cell Distribution Width 19.4 % (11.8-14.3); White Blood Cell 7.5 10^3/uL (4.4-10.8)
[2020-03-06 05:13] LABS: Calcium 9.2 mg/dL (8.5-10.1); Potassium 3.6 mmol/L (3.5-5.1)
[2020-03-06 05:15] LABS: BUN/Creatinine Ratio 10.4
--- NOTE | 2020-03-06 05:16 | NUR ---
RT DECREASED THE OXYMIZER TO 6L. O2 SAT 96%.
[2020-03-06] MEDS: metroNIDAZOLE 500MG/100ML 100 ML IV SCH ×3 (05:39→22:42)
--- NOTE | 2020-03-06 06:00 | NUR ---
DECREASED THE OXYMIZER TO 4L.
--- NOTE | 2020-03-06 06:00 | NUR ---
VOICE IS STRONGER. DECREASING THE OXYMIZER RATE. NSR WITHOUT ECTOPY. IV PATENT.
--- NOTE | 2020-03-06 06:33 | NUR ---
CHANGED TO NASAL CANNULA 4LNP. O2 SATURATION 93%.
--- NOTE | 2020-03-06 07:25 | NUR ---
REPORT RECEIVED FROM ASH HANDLER RN
--- NOTE | 2020-03-06 08:38 | NUR ---
FAMILY UPDATED ON PATIENT STATUS. ALL QUESTIONS AND CONCERNS ADDRESSED AT THIS TIME
[2020-03-06] MEDS: cefTRIAXone 1GM/50ML D5W 50 ML IV SCH (08:47)
--- NOTE | 2020-03-06 09:01 | NUR ---
JIMÉNEZ CATHETER REMOVED PER PATIENT REQUEST
--- NOTE | 2020-03-06 09:03 | NUR ---
DR. SOLORIO PAGED REGARDING ELEVATED BLOOD PRESSURE
[2020-03-06] MEDS: AZITHROMYCIN 500MG/ 250ML 250 ML IV SCH (09:54)
[2020-03-06] MEDS: PANTOPRAZOLE 40 MG/10 ML VIAL INJ IV SCH (09:54)
[2020-03-06] MEDS: ENOXAPARIN SOD 40 MG/0.4 ML SYRINGE SC SCH (09:54)
--- NOTE | 2020-03-06 10:11 | NUR ---
DR. SOLORIO AT BEDSIDE
[2020-03-06] MEDS ORDERED: amLODIPine BESYLATE 5 MG TAB ONE (10:13)
--- NOTE | 2020-03-06 10:17 | NUR ---
PATIENT URINATED 575 CC STRAW COLORED URINE INTO URINAL
[2020-03-06] MEDS ORDERED: MULTIPLE VITAMIN TAB PO ONE (10:30)
[2020-03-06] MEDS ORDERED: FOLIC ACID 1 MG TAB PO ONE (10:30)
[2020-03-06] MEDS ORDERED: THIAMINE HCL 100 MG TAB PO ONE (10:30)
[2020-03-06] MEDS: amLODIPine BESYLATE 5 MG TAB PO SCH (11:15)
--- NOTE | 2020-03-06 12:42 | NUR ---
PATIENT PROVIDED WITH LUNCH TRAY
--- NOTE | 2020-03-06 17:16 | NUR ---
PATIENT RESTING WITH NO S/S OF DISTRESS
--- NOTE | 2020-03-06 18:18 | NUR ---
PATIENT PROVIDED WITH DINNER TRAY
[2020-03-06] MEDS: SODIUM CHLORIDE 0.9% 1,000 ML IV SCH ×2 (18:23→22:42)
--- NOTE | 2020-03-06 18:40 | NUR ---
Respiratory note: ASSESS PT FOR PRN MED NEB AT THIS TIME, NO DISTRESS NOTED, NO TX INDICATED. PULSE OX 93% ON 4LNC, HR 97, RR 18, BILATERAL BS DIMINISHED.
--- NOTE | 2020-03-06 19:40 | NUR ---
DR GAUTAM AT BEDSIDE MD EDUCATED PATIENT ON POC, HIS STATUS AND ETOH USE.
--- NOTE | 2020-03-06 19:45 | NUR ---
PATIENT REPORTS ITCHING RECEIVED NEW ORDERS FROM DR. GAUTAM
--- NOTE | 2020-03-06 20:16 | NUR ---
PATIENT IS TAKING BED BATH ON HIS OWN WET TOWEL AND CHG WIPES PROVIDED, EDUCATED PATIENT ON PROPER USE OF CHG WIPES. STAND BY ASSISTANCE, CALL LIGHT WITHIN REACH.
[2020-03-06] MEDS: diphenhdrAMINE HCL 25 MG CAP PO PRN (20:22)
--- NOTE | 2020-03-06 21:50 | NUR ---
REPORT GIVEN TO JEREMY MEDRANO PATIENT WILL BE TRANSFERRED FROM ICU 101 TO [facility] 294B
--- NOTE | 2020-03-06 22:30 | NUR ---
pt got to floor from ICU. no sign of distress at this time, report given by Darrian MEDRANO
--- NOTE | 2020-03-06 22:40 | NUR ---
PATIENT TRANSFERRED TO TELE 294B PATIENT TRANSFERRED TO TELE 294B FROM ICU 101 BY WHEELCHAIR ON PORTABLE OXYGEN AND TELE BOX. TRANSFERRED WITH ACLS BOX ACCORDING TO PROTOCOL. ALL BELONGINGS WENT WITH PATIENT INCLUDING HIS BLACK BAG, CELLPHONE AND CELLPHONE BREWERY PUMPER. JEREMY MEDRANO AT THE BEDSIDE ORIENTING PATIENT TO HIS NEW ROOM.
[2020-03-07] MEDS: diphenhdrAMINE HCL 25 MG CAP PO PRN (04:04)
[2020-03-07] MEDS: LABETALOL HCL 5 MG/ML 4ML SYRINGE IV PRN (04:50)
[2020-03-07 05:00] VITALS: BP 174/105
[2020-03-07] MEDS: metroNIDAZOLE 500MG/100ML 100 ML IV SCH ×2 (05:38→13:56)
--- NOTE | 2020-03-07 06:35 | NUR ---
PRN [place] TX NOT INDICATED AT THIS TIME. PT IS AWAKE, ALERT AND ORIENTED. PT ON 3L/MIN VIA NC. 94% O2SATS, HR 92 BPM, RR20 BPM, BS ARE BIBASILARLY DIMINISHED TO AUSCULTATION. SKIN IS WARM AND DRY TO THE TOUCH. RESPIRATION IS EVEN AND NON LABORED. PT DENIES SOB OR ANY OTHER RESPIRATORY DISTRESS. PT INSTRUCTED TO CALL IF [place] TX IS INDICATED. PT VERBALIZED UNDERSTANDING.
--- NOTE | 2020-03-07 07:25 | NUR ---
pt wants his wallet now that was pl;aced in safe. spoke to powerhouse mechanic supervisor Kervin and will get back to the pt. day RN made aware
--- NOTE | 2020-03-07 07:30 | NUR ---
endorsed care to day RN. no sign of pain/distress at this time
[2020-03-07 09:00] VITALS: BP 152/92
[2020-03-07] MEDS: PANTOPRAZOLE 40 MG/10 ML VIAL INJ IV SCH (09:00)
[2020-03-07] MEDS: cefTRIAXone 1GM/50ML D5W 50 ML IV SCH (09:00)
[2020-03-07] MEDS: amLODIPine BESYLATE 5 MG TAB PO SCH (09:02)
[2020-03-07] MEDS: ENOXAPARIN SOD 40 MG/0.4 ML SYRINGE SC SCH (09:02)
--- NOTE | 2020-03-07 09:12 | NUR ---
per dr ulrich patient can DC home, patient condition discussed with patient extensively according to Dr Ulrich
--- NOTE | 2020-03-07 09:14 | NUR ---
no wallet still from house sup, called day house sup she will bring patient belongings.
[2020-03-07] MEDS ORDERED: ACETAMINOPHEN 325 MG TAB PO PRN (09:15)
[2020-03-07] MEDS: AZITHROMYCIN 500MG/ 250ML 250 ML IV SCH (09:25)
--- NOTE | 2020-03-07 09:35 | NUR ---
PATIENT WALLET BROUGHT AND BELONGINGS GIVEN BACK TO PATIENT.
[2020-03-07] MEDS ORDERED: MULTIPLE VITAMIN TAB PO SCH (10:00)
[2020-03-07] MEDS ORDERED: THIAMINE HCL 100 MG TAB PO SCH (10:00)
[2020-03-07] MEDS ORDERED: FOLIC ACID 1 MG TAB PO SCH (10:00)
[2020-03-07 10:24] LABS: Basophils # (auto) 0 10 ^3/uL (0-0.2); Basophils % (auto) 0.5 % (0.0-2.0); Eosinophils # (auto) 0.1 10 ^3/uL (0-0.8); Eosinophils % (auto) 1.6 % (0.0-7.0); Hematocrit 47.5 % (41.0-53.0); Hemoglobin 15.5 g/dL (13.5-17.5); Lymphocytes # (auto) 0.6 10 ^3/uL (0.4-5.4); Lymphocytes % (auto) 8.5 % (10.0-50.0); Mean Corpuscular Hemoglobin 27.9 pg (28.0-32.0); Mean Corpuscular Hgb Conc. 32.7 g/dL (32.0-36.0); Mean Corpuscular Volume 85.5 fL (80.0-100.0); Monocytes # (auto) 0.6 10 ^3/uL (0-1.3); Monocytes % (auto) 7.3 % (0.0-12.0); Neutrophils # (auto) 6.2 10 ^3/uL (1.6-8.6); Neutrophils % (auto) 82.1 % (37.0-80.0); Nucleated Red Blood Cells % 0.1 %; Platelet Count (auto) 206 10^3/uL (140-450); Red Blood Cells 5.56 10^6/uL (4.5-5.90); White Blood Cell 7.5 10^3/uL (4.4-10.8)
[2020-03-07] MEDS ORDERED: FOLI1TAB6 PO (10:36)
[2020-03-07] MEDS ORDERED: THIA100T10 PO (10:36)
[2020-03-07] MEDS ORDERED: MULTTAB99 PO (10:36)
[2020-03-07] MEDS ORDERED: AML5T PO (10:36)
[2020-03-07 10:41] LABS: Red Cell Distribution Width 20.1 % (11.8-14.3)
[2020-03-07 10:42] LABS: Calcium 9.7 mg/dL (8.5-10.1); Potassium 3.2 mmol/L (3.5-5.1)
[2020-03-07 10:44] LABS: BUN/Creatinine Ratio 17.9
[2020-03-07 10:54] VITALS: BP 152/99
--- NOTE | 2020-03-07 11:34 | NUR ---
PATIENT IV DISCONTINUED WITHOUT INCIDENCE, PATIENT DISCHARGE INSTRUCTIONS GIVEN TO PATIENT PATIENT VERBALIZED UNDERSTANDING OF ALL INFORMATION
== END 2020-03-07 14:50 | disposition home or self-care (01) | DRG 130 ==
LOC: EDBD 12:32 → ER 12:32 → ICU WEST 12:33 → TELE-WESTW 03-06 22:40
PROVIDERS: ADMIT Nurse Practitioner Acute Care; ATTEND Internal Medicine Pulmonary Disease
PROC: 5A1955Z Respiratory Ventilation, Greater than 96 Consecutive Hours (ICD-10-PCS; principal; 2020-02-29)
PROC: 0BH17EZ Insertion of Endotracheal Airway into Trachea, Via Natural or Artificial Opening (ICD-10-PCS; 2020-02-29)
PROC: 02HV33Z Insertion of Infusion Device into Superior Vena Cava, Percutaneous Approach (ICD-10-PCS; 2020-02-29)
PROC: 3E0436Z Introduction of Nutritional Substance into Central Vein, Percutaneous Approach (ICD-10-PCS; 2020-03-01)
PROC: 5A09357 Assistance with Respiratory Ventilation, Less than 24 Consecutive Hours, Continuous Positive Airway Pressure (ICD-10-PCS; 2020-03-05)
DX: J96.01 Acute respiratory failure with hypoxia (principal); J69.0 Pneumonitis due to inhalation of food and vomit; G93.41 Metabolic encephalopathy; J96.02 Acute respiratory failure with hypercapnia; G40.509 Epileptic seizures related to external causes, not intractable, without status epilepticus; F10.239 Alcohol dependence with withdrawal, unspecified; I16.0 Hypertensive urgency; E66.9 Obesity, unspecified; I51.7 Cardiomegaly; Y90.8 Blood alcohol level of 240 mg/100 ml or more; Z91.19 Patient's noncompliance with other medical treatment and regimen; Z88.8 Allergy status to other drugs, medicaments and biological substances; Z84.1 Family history of disorders of kidney and ureter; Z84.89 Family history of other specified conditions; Z79.899 Other long term (current) drug therapy; Z68.31 Body mass index [BMI] 31.0-31.9, adult
CPT/HCPCS: 36415; 36600; 70450; 71045; 76705; 80048; 80053; 80307; 80320; 81001; 82805; 83036; 85025; 87040; 87070; 87081; 87205; 94002; 94003; 94640; 94660; 95819; 96361; 96365; 96372; 96375; A4565; C9113; G0378; J0171; J0696; J2250; J2405; J2704; J3490; J7060